=== PATIENT | female | born 1995 | race Two or more races ===

== ENCOUNTER 2021-08-01 17:11 | Emergency (ER) | payer MEDICAID ==
[~2021-08-01] VITALS: Ht 154.9 cm; Wt 99.8 kg
--- NOTE | 2021-08-01 17:25 | NUR ---
ABDOMINAL CRAMPING AND TIGHTNESS X TODAY. 33 WEEKS . PATIENT A/OX4, BREATHING EVEN AND UNLABORED, NO SOB NOTED. NEEDS ATTENDED.
--- NOTE | 2021-08-01 17:29 | NUR ---
DR BRAGA ([facility]) OFFICE [phone] CELL [phone]
--- NOTE | 2021-08-01 18:15 | NUR ---
CALLED [employer]. AWAITING A CALL BACK FROM DR BRAGA.
--- NOTE | 2021-08-01 18:20 | NUR ---
DR HANDLEY SPEAKING WITH PORTABLE MACHINE CUTTER NOW.
[2021-08-01 18:24] LABS: MEAN CORPUSCULAR HGB CONC 32 g/dl (31.0-36.0)
[2021-08-01] MEDS ORDERED: ACETAMINOPHEN ES 500 MG TABLET PO ONE (18:30)
[2021-08-01 18:34] LABS: BASOPHILS # (AUTO) 0.1 K/uL (0.0-0.2); BASOPHILS % (AUTO) 0.9 % (0.0-2.0); HEMATOCRIT 35 % (33-45); HEMOGLOBIN 11.1 g/dL (11.5-14.8); LYMPHOCYTES # (AUTO) 2.4 K/uL (0.8-4.8); LYMPHOCYTES % (AUTO) 19.5 % (20.0-44.0); MEAN CORPUSCULAR VOLUME 87 fL (82-100); MONOCYTES # (AUTO) 0.8 K/uL (0.1-1.30); MONOCYTES % (AUTO) 6.2 % (2.0-12.0); NEUTROPHILS % (AUTO) 72.4 % (43.0-81.0); PLATELET COUNT (AUTO) 305 K/uL (150-450); RED BLOOD CELL COUNT(AUTO) 3.98 MIL/uL (4.0-5.2); WHITE BLOOD COUNT (AUTO) 12.5 K/uL (4.3-11.0)
[2021-08-01 18:36] LABS: ALBUMIN 2.4 g/dL (3.4-5.0); BILIRUBIN,DIRECT 0.1 mg/dL (0.0-0.2); BILIRUBIN,TOTAL 0.3 mg/dL (0.2-1.0); CALCIUM, SERUM 8.7 mg/dL (8.5-10.1); CREATININE 0.4 mg/dL (0.6-1.3); POTASSIUM 3.9 mmol/L (3.5-5.1); TOTAL PROTEIN, SERUM 6.8 g/dL (6.4-8.2)
--- NOTE | 2021-08-01 18:36 | NUR ---
UA SENT TO LAB
[2021-08-01] MEDS ORDERED: ACETAMINOPHEN ES 500 MG TABLET ONE (18:39)
[2021-08-01 19:01] VITALS: BP 122/77
--- NOTE | 2021-08-01 19:01 | NUR ---
Patient discharged to home in stable condition. Written and verbal after care instructions given. Patient verbalizes understanding of instruction.
[2021-08-01 19:06] LABS: BILIRUBIN,URINE Negative (NEGATIVE); COLOR,URINE YELLOW (YELLOW); LEUKOCYTE ESTERASE ,URINE Moderate (NEGATIVE); NITRITE, URINE Negative (NEGATIVE); PH,URINE 6.5 (5.0-8.0); PROTEIN,URINE Negative (NEGATIVE); UGLUCOSE Negative (NEGATIVE); UROBILINOGEN,URINE 0.2 EU/dL (0.2)
[2021-08-01 19:09] LABS: BACTERIA,URINE 2+ /HPF (None Seen); RBC,URINE NONE SEEN /HPF (0-2); SQUAMOUS EPITHELIAL CELL,UR Few /HPF (None Seen)
== END 2021-08-01 19:02 | disposition home or self-care (01) ==
LOC: ER 17:13
DX: O99.613 Diseases of the digestive system complicating pregnancy, third trimester (principal); Z3A.35 35 weeks gestation of pregnancy
CPT/HCPCS: 36415; 76705-TC; 76805-TC; 80048-TC; 80076-TC; 81001; 83690-TC; 85025-TC; 87086-TC

== ENCOUNTER 2023-04-25 22:28 | Emergency (ER) | payer MEDICAID ==
[~2023-04-25] VITALS: Ht 154.9 cm; Wt 86.2 kg
[2023-04-25] MEDS ORDERED: MORPHINE SULFATE INJ 2 MG/ML DISP.SYRIN IV ONE (23:00)
[2023-04-25] MEDS ORDERED: ONDANSETRON HCL/PF 4 MG/2 ML VIAL IV ONE (23:00)
[2023-04-25 23:10] LABS: BASOPHILS # (AUTO) 0.1 K/uL (0.0-0.2); BASOPHILS % (AUTO) 0.8 % (0.0-2.0); EOSINOPHILS % (AUTO) 3.9 % (0.0-6.0); HEMATOCRIT 33 % (33-45); HEMOGLOBIN 10.8 g/dL (11.5-14.8); LYMPHOCYTES # (AUTO) 3.3 K/uL (0.8-4.8); LYMPHOCYTES % (AUTO) 27.6 % (20.0-44.0); MEAN CORPUSCULAR HGB CONC 33 g/dl (31.0-36.0); MEAN CORPUSCULAR VOLUME 86 fL (82-100); MONOCYTES # (AUTO) 0.7 K/uL (0.1-1.30); MONOCYTES % (AUTO) 5.8 % (2.0-12.0); NEUTROPHILS # (AUTO) 7.3 K/uL (1.8-8.9); NEUTROPHILS % (AUTO) 61.9 % (43.0-81.0); PLATELET COUNT (AUTO) 282 K/uL (150-450); RED BLOOD CELL COUNT(AUTO) 3.89 MIL/uL (4.0-5.2); WHITE BLOOD COUNT (AUTO) 11.8 K/uL (4.3-11.0)
[2023-04-25] MEDS ORDERED: ONDANSETRON HCL/PF 4 MG/2 ML VIAL ONE (23:10)
[2023-04-25] MEDS ORDERED: MORPHINE SULFATE INJ 2 MG/ML DISP.SYRIN ONE (23:11)
[2023-04-25 23:18] LABS: CALCIUM, SERUM 8.6 mg/dL (8.5-10.1); CREATININE 0.7 mg/dL (0.6-1.3); POTASSIUM 3.8 mmol/L (3.5-5.1)
--- NOTE | 2023-04-25 23:24 | NUR ---
AMBULATED TO THE BATHROOM, ATTEMPTED TO GET URINE BUT NOT ABLE TO
[2023-04-25 23:25] LABS: ALBUMIN 2.9 g/dL (3.4-5.0); BILIRUBIN,TOTAL 0.1 mg/dL (0.2-1.0); TOTAL PROTEIN, SERUM 6.6 g/dL (6.4-8.2)
--- NOTE | 2023-04-26 00:50 | NUR ---
URINE COLLECTED, SENT TO LAB
[2023-04-26] MEDS ORDERED: IV NS 0.9% 1,000 ML BAG IV ONE (01:00)
[2023-04-26 01:37] LABS: BILIRUBIN,URINE NEGATIVE (NEGATIVE); COLOR,URINE DARK YELLOW (YELLOW); LEUKOCYTE ESTERASE ,URINE NEGATIVE (NEGATIVE); NITRITE, URINE NEGATIVE (NEGATIVE); PROTEIN,URINE 1+ mg/dl (NEGATIVE); UGLUCOSE NEGATIVE (NEGATIVE); UROBILINOGEN,URINE 0.2 EU/dL (0.2)
[2023-04-26 01:41] LABS: BACTERIA,URINE Rare /HPF (None Seen); SQUAMOUS EPITHELIAL CELL,UR Few /HPF (None Seen); WBC,URINE 0-2 /HPF (0-3)
--- NOTE | 2023-04-26 01:50 | NUR ---
IV removed. Catheter intact and site benign. Pressure and 4x4 applied to site. No bleeding noted.Patient discharged to home in stable condition. Written and verbal after care instructions given. Patient verbalizes understanding of instruction.
[2023-04-26 01:55] VITALS: BP 125/79
== END 2023-04-26 01:55 | disposition home or self-care (01) ==
LOC: ER 22:30
DX: O07.4 Failed attempted termination of pregnancy without complication (principal)
CPT/HCPCS: 99285; 96374; 76856; 96375; 85025; 80048; 80076; 36415; 85730; 84702; 96361; 81001; J2405; J2270; J7030; J7040